=== PATIENT | male | born 1950 | race Asian ===

== ENCOUNTER 2021-04-04 10:56 | Emergency (ER) | payer OTHER ==
[~2021-04-04] VITALS: Ht 167.6 cm; Wt 99.8 kg
[2021-04-04 10:58] VITALS: BP 206/109
[2021-04-04] MEDS ORDERED: amLODIPine 5 MG TAB PO ONE (11:20)
[2021-04-04] MEDS ORDERED: AMLO5TAB PO (11:26)
[2021-04-04] MEDS ORDERED: ACET-8386 PO (11:26)
[2021-04-04] MEDS ORDERED: [UNRECOGNIZED DRUG - CODE] PO (11:26)
[2021-04-04 11:52] VITALS: BP 194/73
== END 2021-04-04 11:52 | disposition home or self-care (01) ==
LOC: MED 10:56
DX: M10.032 Idiopathic gout, left wrist (principal); M10.022 Idiopathic gout, left elbow; M10.021 Idiopathic gout, right elbow; I10 Essential (primary) hypertension; Z79.899 Other long term (current) drug therapy
CPT/HCPCS: 99283

== ENCOUNTER 2021-06-06 14:17 | Emergency (ER) | payer BC, OTHER ==
[~2021-06-06] VITALS: Ht 167.6 cm; Wt 92.1 kg
[~2021-06-06 14:17] MED LIST: ACET-8386 PO; AMLO5TAB PO; [UNRECOGNIZED DRUG - CODE] PO
[2021-06-06 14:38] VITALS: BP 223/109
--- NOTE | 2021-06-06 14:43 | NUR ---
pt ambulated to bed 11
--- NOTE | 2021-06-06 14:51 | NUR ---
Dr. Hester is evaluating patient at bedside.
[2021-06-06] MEDS ORDERED: amLODIPine 5 MG TAB PO ONE (14:55)
--- NOTE | 2021-06-06 14:58 | NUR ---
70 YO MALE BIBS C/O HIGH BLOOD PRESSURE. PT STATES WAS IN THE 200's AT HOME, AT THIS TIME BP IS 223/109. PT IS REQUESTING MEDICATION CHANGE. DENIES CHEST PAIN, SOB, LOC, BLURRED VISION, N/V/D. A&OX4, RR EVEN AND UNLABORED. MedHX: HTN, GOUT NKA
[2021-06-06 16:00] VITALS: BP 176/82
--- NOTE | 2021-06-06 16:00 | NUR ---
Patient discharged with v/s stable. Written and verbal after care instructions given and explained. Patient verbalized understanding. Ambulatory with steady gait. All questions addressed prior to discharge. Advised to follow up with PMD.
== END 2021-06-06 16:00 | disposition home or self-care (01) ==
LOC: MED 14:17
DX: I10 Essential (primary) hypertension (principal); Z79.899 Other long term (current) drug therapy
CPT/HCPCS: 99283